=== PATIENT | male | born 2000 | race Two or more races ===

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

== ENCOUNTER → 2018-09-01 | Outpatient (CLI) | payer BC ==
[2018-09-02 02:19] LABS: Valproic Acid (Depakene) 109.1 ug/mL (50.0-100.0)
== END | disposition home or self-care (01) ==
LOC: LABWHC1 14:23
PROVIDERS: ATTEND Internal Medicine
DX: F33.1 Major depressive disorder, recurrent, moderate (principal)
CPT/HCPCS: 36415; 80164; 84450; 84460